=== PATIENT | male | born 1975 | race Two or more races ===

== ENCOUNTER 2017-05-05 23:50 | Emergency (ER) | payer OTHER ==
[~2017-05-05] VITALS: Ht 172.7 cm; Wt 87.1 kg
[2017-05-06 00:02] VITALS: BP 137/92
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
[2017-05-06] MEDS ORDERED: LEVO500T59 PO (01:43)
[2017-05-06] MEDS ORDERED: CEPH-264 PO (01:43)
[2017-05-06] MEDS ORDERED: DIPHTH,PERTUSS(ACELL),TET TOX 0.5 ML DISP.SYRIN. VAX IM ONE (01:45)
--- NOTE | 2017-05-06 08:04 | RAD ---
Indication puncture wound. AP oblique and lateral views of the left foot were obtained. Postoperative changes are noted associated with the lateral malleolus. An acute bony finding is not seen. There is a probable bone island seen associated with the calcaneus. No radiopaque foreign body is seen in the soft tissues. IMPRESSION: No acute or significant finding
== END 2017-05-06 01:54 | disposition home or self-care (01) ==
LOC: ER 23:50
DX: S91.332A Puncture wound without foreign body, left foot, initial encounter (principal); J45.909 Unspecified asthma, uncomplicated; W45.0XXA Nail entering through skin, initial encounter; Y93.89 Activity, other specified; Y92.89 Other specified places as the place of occurrence of the external cause; Y99.8 Other external cause status
CPT/HCPCS: 73630; 99284

== ENCOUNTER 2019-04-06 23:57 | Emergency (ER) | payer OTHER ==
[~2019-04-06] VITALS: Ht 175.3 cm; Wt 89.8 kg
[~2019-04-06 23:57] MED LIST: CEPH-264 PO; LEVO500T59 PO; NAPR-683 PO
[2019-04-07 00:03] VITALS: BP 123/82
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
[2019-04-07] MEDS ORDERED: LIDOCAINE WITH 8.4% SOD BICARB 3 ML DISP.SYRIN. INJ ONE (00:30)
== END 2019-04-07 00:40 | disposition home or self-care (01) ==
LOC: ER 23:57
DX: S61.411A Laceration without foreign body of right hand, initial encounter (principal); J45.909 Unspecified asthma, uncomplicated; W22.8XXA Striking against or struck by other objects, initial encounter; Y93.89 Activity, other specified; Y92.89 Other specified places as the place of occurrence of the external cause; Y99.8 Other external cause status
CPT/HCPCS: 12001; 99283

== ENCOUNTER 2020-06-10 14:05 | Emergency (ER) | payer SELFPAY ==
[~2020-06-10] VITALS: Ht 180.3 cm; Wt 81.0 kg
[2020-06-10 14:26] VITALS: BP 157/83
[2020-06-10] MEDS ORDERED: LIDOCAINE 1% Multi-Dose 20 ML VIAL. INJ ONE (14:45)
[2020-06-10] MEDS ORDERED: HYDROcodone/APAP 5/325MG 1 TAB TABLET PO ONE (14:45)
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
--- NOTE | 2020-06-10 15:08 | RAD ---
2 view study left forearm Clinical indications: Laceration injury. FINDINGS: No acute fracture or dislocation or lytic process is evident. No radiopaque or metallic foreign body is evident. IMPRESSION: No acute fracture. Electronically signed by: Wilfrido Ma MD (06/10/2020 3:05 PM) [id number]
[2020-06-10] MEDS ORDERED: CEPH-264 PO (15:45)
== END 2020-06-10 15:53 | disposition home or self-care (01) ==
LOC: ER 14:05
DX: S51.812A Laceration without foreign body of left forearm, initial encounter (principal); J45.909 Unspecified asthma, uncomplicated; F17.200 Nicotine dependence, unspecified, uncomplicated; Z98.890 Other specified postprocedural states; W26.0XXA Contact with knife, initial encounter; Y93.89 Activity, other specified; Y92.89 Other specified places as the place of occurrence of the external cause; Y99.8 Other external cause status
CPT/HCPCS: 12001; 73090; 99283; J3490